=== PATIENT | female | born 1955 | race Caucasian/White ===

== ENCOUNTER 2016-08-24 09:20 | Inpatient (IN) | payer BC ==
[~2016-08-24] VITALS: Ht 157.5 cm; Wt 68.7 kg
[~2016-08-24 09:20] MED LIST: ASPIR 8181 M1; Aspirin E.C. PO; EFFEXOR75 MG; Effexor PO; LIPITOR40 MG PO; LOPRESSOR25 MG PO
[2016-08-24 09:35] LABS: HEMATOCRIT 35.6 % (36.0-46.0); MCH 30.7 PG (29.0-34.0); MCHC 34.3 G/DL (30.0-36.0); MCV 89.4 FL (83-99); MEAN PLAT.VOLUME 10.9 uM^3 (9.5-12.4); PLATELET COUNT 212 K/uL (156-360); RBC DIS.WIDTH-SD 39.1 % (39-53); RED BLOOD COUNT 3.98 M/uL (3.80-5.20)
[2016-08-24 09:38] LABS: WHITE BLOOD COUNT 9.2 K/uL (4.1-10.2)
[2016-08-24 09:45] LABS: CHLORIDE 111 mEq/L (99-109)
[2016-08-24 09:46] LABS: POTASSIUM 4.3 mEq/L (3.7-5.4); SODIUM 144 mEq/L (136-147)
[2016-08-24 09:47] LABS: GLUCOSE 133 mg/dL (70-99)
[2016-08-24] MEDS ORDERED: CRESTOR40 MG PO (09:47)
[2016-08-24] MEDS ORDERED: EFFEXOR75 MG PO (09:48)
[2016-08-24 09:49] LABS: ANION GAP 12 MEQ/L (2-14)
[2016-08-24 09:51] LABS: GFR ESTIMATE (CALCULATED) > 59 mL/min/
[2016-08-24 09:52] LABS: UREA NITROGEN (BUN) 22 mg/dL (9-23)
[2016-08-24 09:59] LABS: TROP-I INTERPRETATION NEGATIVE; TROPONIN-I < 0.01 ng/mL (0.0-0.30)
[2016-08-24] MEDS ORDERED: VITAMIN C1000 MG PO (11:30)
[2016-08-24] MEDS ORDERED: LO-DOSE ASPIRIN81 M2 PO (11:30)
[2016-08-24] MEDS ORDERED: BIOTIN10000 MC1 PO (11:31)
[2016-08-24] MEDS ORDERED: VITAMIN E400 UNIT PO (11:31)
[2016-08-24] MEDS ORDERED: SELENIUM200 MCG PO (11:31)
[2016-08-24] MEDS ORDERED: CALCIUM 600 +1 EAC2 PO (11:32)
[2016-08-24 12:20] VITALS: BP 125/56
[2016-08-24 15:59] VITALS: BP 128/68
[2016-08-24 16:54] LABS: TROP-I INTERPRETATION POSITIVE
[2016-08-24 17:26] LABS: TROPONIN-I 1.66 ng/mL (0.0-0.30)
[2016-08-24 19:00] VITALS: BP 124/80
[2016-08-24 22:28] LABS: TROP-I INTERPRETATION POSITIVE; TROPONIN-I 5.75 ng/mL (0.0-0.30)
[2016-08-25] VITALS: BP 122/78
[2016-08-25 04:00] VITALS: BP 122/77
[2016-08-25 04:39] LABS: HEMATOCRIT 35.9 % (36.0-46.0); MCH 29.9 PG (29.0-34.0); MCHC 32.9 G/DL (30.0-36.0); MCV 91.1 FL (83-99); MEAN PLAT.VOLUME 11.4 uM^3 (9.5-12.4); PLATELET COUNT 211 K/uL (156-360); RBC DIS.WIDTH-CV 12.1 % (11.8-14.6); RBC DIS.WIDTH-SD 40.7 % (39-53); RED BLOOD COUNT 3.94 M/uL (3.80-5.20); WHITE BLOOD COUNT 8.4 K/uL (4.1-10.2)
[2016-08-25 04:49] LABS: CHLORIDE 110 mEq/L (99-109); POTASSIUM 3.9 mEq/L (3.7-5.4); SODIUM 144 mEq/L (136-147)
[2016-08-25 04:51] LABS: GLUCOSE 101 mg/dL (70-99)
[2016-08-25 04:52] LABS: ANION GAP 9 MEQ/L (2-14)
[2016-08-25 04:55] LABS: GFR ESTIMATE (CALCULATED) > 59 mL/min/
[2016-08-25 04:56] LABS: UREA NITROGEN (BUN) 20 mg/dL (9-23)
[2016-08-25 05:03] LABS: TROP-I INTERPRETATION POSITIVE
[2016-08-25 07:19] VITALS: BP 127/66
[2016-08-25 10:58] LABS: TROP-I INTERPRETATION POSITIVE
[2016-08-25 11:44] VITALS: BP 120/76
[2016-08-25 15:34] VITALS: BP 129/77
[2016-08-25 19:00] VITALS: BP 116/71; BP 121/66
[2016-08-26 00:15] VITALS: BP 132/80
[2016-08-26 03:59] VITALS: BP 148/77
[2016-08-26 07:52] VITALS: BP 132/73
[2016-08-26 11:39] VITALS: BP 121/72
[2016-08-26 13:57] LABS: PROTHROMBIN TIME 10.3 (9.2-11.2); PTT 32.9 (25-32)
[2016-08-26] MEDS ORDERED: SIMVASTATIN40 MG PO (16:04)
[2016-08-26 23:53] VITALS: BP 92/54
[2016-08-27 03:50] VITALS: BP 117/74
[2016-08-27 07:30] VITALS: BP 135/69
[2016-08-27 08:00] LABS: ANION GAP 7 MEQ/L (2-14); CHLORIDE 109 MEQ/L (99-109); GFR ESTIMATE (CALCULATED) > 59 mL/min/; GLUCOSE 92 mg/dL (70-99); POTASSIUM 4.1 MEQ/L (3.7-5.4); SAMPLE HEMOLYSIS CHECK 0; SAMPLE ICTERIC CHECK 0; SAMPLE LIPEMIA CHECK 0; SODIUM 143 MEQ/L (136-147); UREA NITROGEN (BUN) 12 mg/dL (9-23)
[2016-08-27 11:28] VITALS: BP 126/71
[2016-08-27] MEDS ORDERED: NITROGLYCERIN0.4 MG SL (13:34)
== END 2016-08-27 14:46 | disposition home or self-care (01) | DRG 287 ==
LOC: EME → EDBD 09:20 → EDOF 10:33 → 4WEST 11:25 → 5WEST 11:26 → 4EAST 08-26 20:47
PROVIDERS: Hospitalist; Internal Medicine Cardiovascular Disease; Physician Assistant Medical
DX: I25.111 Atherosclerotic heart disease of native coronary artery with angina pectoris with documented spasm (principal); I10 Essential (primary) hypertension; E78.5 Hyperlipidemia, unspecified; Z95.5 Presence of coronary angioplasty implant and graft; I27.2 Other secondary pulmonary hypertension; F41.9 Anxiety disorder, unspecified; Z87.891 Personal history of nicotine dependence; E78.00 Pure hypercholesterolemia, unspecified; R74.8 Abnormal levels of other serum enzymes
CPT/HCPCS: 71020; 71275; 80048; 84484; 85027; 85610; 85730; 93005; 93306; 99281; 99285; C1760; C1769; C1887; C1894; J1644; J1650; J2060; J2250; J3010